=== PATIENT | male | born 1960 | race Caucasian/White ===

== ENCOUNTER → 2018-10-22 | Outpatient (CLI) | payer BC ==
[~2018-10-22] MED LIST: DAYPRO600 M1 PO; DEBROX 15 ML15 M1 OT; KEFLEX500 MG PO; SKELAXIN800 MG PO
== END | disposition home or self-care (01) ==
LOC: RAD 16:59
DX: M21.062 Valgus deformity, not elsewhere classified, left knee (principal); M17.12 Unilateral primary osteoarthritis, left knee

== ENCOUNTER → 2019-08-11 | Outpatient (CLI) | payer BC | END | disposition home or self-care (01) | LOC: RAD 14:42 | DX: M54.5 Low back pain (principal) ==

== ENCOUNTER 2020-12-20 16:44 | Emergency (ER) | payer BC ==
[~2020-12-20] VITALS: Wt 108.9 kg
== END 2020-12-20 19:44 | disposition home or self-care (01) ==
LOC: ED 16:44
DX: S61.210A Laceration without foreign body of right index finger without damage to nail, initial encounter (principal); W26.8XXA Contact with other sharp object(s), not elsewhere classified, initial encounter; Y93.89 Activity, other specified; Y92.89 Other specified places as the place of occurrence of the external cause; Y99.8 Other external cause status

== ENCOUNTER 2021-05-17 14:08 | Emergency (ER) | payer BC ==
[~2021-05-17] VITALS: Ht 182.8 cm; Wt 106.6 kg
[2021-05-17] MEDS ORDERED: [UNRECOGNIZED DRUG - OTHER] OT (16:46)
[2021-05-17] MEDS ORDERED: OFLOXACIN OTIC5 ML OPH (16:57)
== END 2021-05-17 16:58 | disposition home or self-care (01) ==
LOC: ED 14:08
DX: H61.23 Impacted cerumen, bilateral (principal)

== ENCOUNTER 2022-08-25 22:53 | Emergency (ER) | payer BC ==
[~2022-08-25] VITALS: Ht 187.9 cm; Wt 97.5 kg
[~2022-08-25 22:53] MED LIST changes: +OFLOXACIN OTIC5 ML OPH; +[UNRECOGNIZED DRUG - OTHER] OT
== END 2022-08-26 02:55 | disposition home or self-care (01) ==
LOC: ED 22:53
DX: S86.912A Strain of unspecified muscle(s) and tendon(s) at lower leg level, left leg, initial encounter (principal); Z98.890 Other specified postprocedural states; W18.09XA Striking against other object with subsequent fall, initial encounter; Y93.89 Activity, other specified; Y92.89 Other specified places as the place of occurrence of the external cause; Y99.8 Other external cause status

== ENCOUNTER 2022-12-11 15:03 | Emergency (ER) | payer BC ==
[~2022-12-11] VITALS: Wt 106.6 kg
[2022-12-11] MEDS ORDERED: VIBRAMYCIN100 MG PO (15:34)
== END 2022-12-11 15:50 | disposition home or self-care (01) ==
LOC: ED 15:03
DX: S40.262A Insect bite (nonvenomous) of left shoulder, initial encounter (principal); Z98.890 Other specified postprocedural states; W57.XXXA Bitten or stung by nonvenomous insect and other nonvenomous arthropods, initial encounter; Y93.89 Activity, other specified; Y92.89 Other specified places as the place of occurrence of the external cause; Y99.8 Other external cause status

== ENCOUNTER 2024-09-28 15:36 | Emergency (ER) | payer BC ==
[~2024-09-28] VITALS: Ht 185.4 cm; Wt 108.0 kg
[~2024-09-28 15:36] MED LIST changes: +VIBRAMYCIN100 MG PO
[2024-09-28] MEDS ORDERED: DEBROX15 ML OT (16:26)
== END 2024-09-28 16:31 | disposition home or self-care (01) ==
LOC: ED 15:36
DX: H61.21 Impacted cerumen, right ear (principal)